=== PATIENT | female | born 1990 | race Caucasian/White ===

== ENCOUNTER 2016-10-26 17:52 | Inpatient (IN) | payer BC ==
[~2016-10-26] VITALS: Ht 162.6 cm; Wt 84.1 kg
[2016-10-26] VITALS (20 sets, daily range): BP systolic 97–138; BP diastolic 56–90; PULSE 75–118; TEMP 97.6–98.3
[2016-10-26] MEDS ORDERED: CLARITIN 1010 MG/TAB (18:08)
[2016-10-26] MEDS ORDERED: PRENATAL PO (18:08)
[2016-10-26 19:14] LABS: BASO % 0.2 % (0.0-2.0); EOS # 0.1 (0.0-0.7); EOS % 0.8 % (0-4.0); GRAN # 9.5 (1.4-6.5); GRAN % 72.8 % (42.2-75.2); HEMATOCRIT 39.3 % (37.0-47.0); HEMOGLOBIN 13.7 g/dl (12.5-16.0); LYMPH # 2.5 (1.2-3.4); LYMPH % 18.8 % (20.0-51.0); MEAN CELL VOLUME 88 fl (80.0-100.0); MEAN CORPUSCULAR HEMOGLOBIN 31 pg (27.0-31.0); MEAN CORPUSCULAR HGB CONC 35 g/dl (33.0-37.0); MEAN PLATELET VOLUME 10.2 fl (7.4-10.4); MONO # 0.9 (0.1-0.6); MONO % 6.7 % (1.7-9.3); PLATELET COUNT 180 K/mm3 (130-400); RED BLOOD COUNT 4.48 M/mm3 (4.10-5.30); REDCELL DISTRIBUTION WIDTH-CV 12.4 % (11.5-14.5)
[2016-10-26 19:27] LABS: ADJUSTED CALCIUM 9.6 mg/dL (8.4-10.2); ALBUMIN 3.6 gm/dL (3.5-5.0); BILIRUBIN,TOTAL 0.6 mg/dL (0.0-1.0); CALCIUM 9.3 mg/dL (8.4-10.2); CREATININE, serum 0.68 mg/dL (0.52-1.25); POTASSIUM 3.5 mmol/L (3.4-5.0); TOTAL PROTEIN 6.8 gm/dL (6.4-8.2)
[2016-10-26] MEDS ORDERED: PERCOCET 325 MG1 TA2 PO (21:06)
[2016-10-26] MEDS ORDERED: MOTRIN 800800 MG/TAB PO (21:06)
[2016-10-27] VITALS (27 sets, daily range): BP systolic 102–144; BP diastolic 59–87; PULSE 78–120; TEMP 97.4–98.8
[2016-10-27 01:04] LABS: PH 6 (5-8); URINE APPEARANCE Clear; URINE BACTERIA None Seen /hpf; URINE BILIRUBIN Negative (NEGATIVE); URINE BLOOD 1+ (NEGATIVE); URINE COLOR Yellow; URINE GLUCOSE Negative (NEGATIVE); URINE KETONE 1+ (NEGATIVE); URINE RBC 20-50 /hpf; URINE UROBILINOGEN Negative (NEGATIVE)
[2016-10-28 08:55] VITALS: BP 116/73; PULSE 80; TEMP 97.4
[2016-10-28 12:31] VITALS: BP 132/88; PULSE 76; TEMP 97.9
[2016-10-28 16:28] VITALS: BP 120/85; PULSE 70; TEMP 97.5
[2016-10-28 19:00] VITALS: BP 130/91; PULSE 83; TEMP 98
[2016-10-29 07:34] VITALS: BP 130/86; PULSE 81; TEMP 98
== END 2016-10-29 13:15 | disposition home or self-care (01) | DRG 775 ==
LOC: LDRO 17:52 → OB 18:16 → LDR 18:16 → OB 10-27 07:15
PROVIDERS: Obstetrics & Gynecology
PROC: 10E0XZZ Delivery of Products of Conception, External Approach (ICD-10-PCS; principal; 2016-10-27)
PROC: 0UQMXZZ Repair Vulva, External Approach (ICD-10-PCS; 2016-10-27)
PROC: 0HQ9XZZ Repair Perineum Skin, External Approach (ICD-10-PCS; 2016-10-27)
DX: O99.12 Other diseases of the blood and blood-forming organs and certain disorders involving the immune mechanism complicating childbirth (principal); D68.51 Activated protein C resistance; O13.3 Gestational [pregnancy-induced] hypertension without significant proteinuria, third trimester; O99.824 Streptococcus B carrier state complicating childbirth; O70.0 First degree perineal laceration during delivery; O71.82 Other specified trauma to perineum and vulva; Z37.0 Single live birth; Z3A.39 39 weeks gestation of pregnancy
CPT/HCPCS: J2405; J2540; J2590; J7120

== ENCOUNTER 2019-10-28 06:53 | Inpatient (IN) | payer BC ==
[2019-10-28] VITALS (34 sets, daily range): BP systolic 121–181; BP diastolic 65–108; PULSE 74–112; TEMP 97.3–99.3
[~2019-10-28] VITALS: Ht 162.6 cm; Wt 94.1 kg
[~2019-10-28 06:53] MED LIST: CLARITIN 1010 MG/TAB; MOTRIN 800800 MG/TAB PO; PERCOCET 325 MG1 TA2 PO; PRENATAL PO
[2019-10-28] MEDS ORDERED: VITAMIN D250 MCG PO (07:15)
[2019-10-28] MEDS ORDERED: COLACE 100100 MG/CAP PO (07:15)
--- NOTE | 2019-10-28 07:30 | NUR ---
0700- Pt. arrives on unit, abulatory for scheduled induction. Pt. into bathroom and changes into gown. 0706- Pt. into bed. EFM and TOCO on and tracing. BP elevated. Will continue to monitor. Assessment completed. 724- IV start. Labs drawn. Pt. tolerated well. Consents explained and signed.
[2019-10-28 07:59] LABS: BASO % 0.2 % (0.0-2.0); EOS # 0.1 (0.0-0.7); EOS % 0.6 % (0-4.0); GRAN # 8.8 (1.4-6.5); HEMATOCRIT 37.7 % (37.0-47.0); HEMOGLOBIN 12.8 g/dl (12.5-16.0); LYMPH # 2.6 (1.2-3.4); LYMPH % 20.8 % (20.0-51.0); MEAN CELL VOLUME 86 fl (80.0-100.0); MEAN CORPUSCULAR HEMOGLOBIN 29 pg (27.0-31.0); MEAN CORPUSCULAR HGB CONC 34 g/dl (33.0-37.0); MEAN PLATELET VOLUME 10.2 fl (7.4-10.4); MONO # 0.9 (0.1-0.6); PLATELET COUNT 205 K/mm3 (130-400); RED BLOOD COUNT 4.38 M/mm3 (4.10-5.30); REDCELL DISTRIBUTION WIDTH-CV 13.7 % (11.5-14.5)
--- NOTE | 2019-10-28 08:30 | NUR ---
0822- Dr. Carver at bedside. Discusses induction. 0825- SVE by -/-3, AROM, clear, odorless fluid noted. Pt tolerated well.
[2019-10-28 09:47] LABS: ALBUMIN 3.4 gm/dL (3.5-5.0); BILIRUBIN,TOTAL 0.4 mg/dL (0.0-1.0); CALCIUM 9.3 mg/dL (8.4-10.2); CREATININE, serum 0.67 (0.52-1.25); POTASSIUM 3.5 mmol/L (3.4-5.0); TOTAL PROTEIN 6.7 gm/dL (6.4-8.2)
--- NOTE | 2019-10-28 11:15 | NUR ---
1015- Pt repositioned to side of bed for epidural placement. Chandler Britton ASSET MANAGEMENT LEAD at bedside. UCs not tracing well due to maternal position. 1017- O2 Sat monitor on and tracing 1021- SS by ASSET MANAGEMENT LEAD, see anesthesia record. 1025- O2 Sat monitor off. Patient assisted to SF with LL. EFM and TOCO adjusted.
[2019-10-28 12:08] LABS: COLLECTION METHOD CLEAN CATCH
[2019-10-28 12:21] LABS: MUCOUS Present /lpf; PH 6 (5-8); SQUAMOUS EPITHELIAL 0-2 /hpf; URINE APPEARANCE Clear; URINE BACTERIA None Seen /hpf; URINE BILIRUBIN Negative (NEGATIVE); URINE BLOOD 1+ (NEGATIVE); URINE COLOR Straw; URINE GLUCOSE Negative (NEGATIVE); URINE KETONE Negative (NEGATIVE); URINE LEUKOCYTE ESTERASE Negative (NEGATIVE); URINE NITRATE Negative (NEGATIVE); URINE PROTEIN(semi-quant) Negative (NEGATIVE); URINE RBC 20-50 /hpf; URINE UROBILINOGEN Negative (NEGATIVE); URINE WBC 0-2 /hpf
--- NOTE | 2019-10-28 12:50 | NUR ---
1224- Pt calls RN to bedside, feeling rectal pressure. SVE by this RN, complete/+1. Pt presses epidural button. 1233- [place] removed without difficulty. 1239- Pt begins pushing with UCs. RN remains at bedside. 1247- Dr Carver and Emanuel Melendez, nursery RN at bedside. Pt and room prepped for delivery. 1250- of viable female . to mother's abd where tended to by nursery RN. Pitocin off. First degree laceration repaired by . Cord clamped and cut, cord blood obtained by . 1255- Spontaneous delivery of placenta. Pitocin restarted at 333ml/hr. Fundus massaged to firm by MD, bleeding WNL. Pericare compelted, ice pack to perineum. New chux pad under Pt. Pt repositioned to high fowlers, baby skin-2-skin.
--- NOTE | 2019-10-28 15:15 | NUR ---
1515- Pt ambulates to bathroom independently with standby assist x2. Pt voids without difficulty. Pericare provided and explained. Underwear and peripad on. While Pt adjusting peripad, IV ripped out, constant stream of blood shooting out of hand and onto floor. Pressure applied by this RN. Gauze and pressure applied by Pt. Will monitor.
[2019-10-29 07:36] VITALS: BP 123/83; PULSE 89; TEMP 98.2
[2019-10-29] MEDS ORDERED: LOVENOX 4040 MG/0.4 SQ (08:57)
[2019-10-29] MEDS ORDERED: IBU800 M1 PO (08:58)
[2019-10-29 15:39] VITALS: BP 125/86; PULSE 90; TEMP 98
--- NOTE | 2019-10-29 15:50 | NUR ---
DISCUSSED WITH PATIENT PLAN TO HAVE 1 WEEK BP CHECK. INFORMED THAT IS OK WITH PATIENT TAKING HER OWN BP AT HOME IF SHE HAS A CUFF AND CALLING IN RESULTS OR SCHEDULING BP CHECK FOR 1 WEEK. PATIENT INSTRUCTED TO CALL SOONER IF EXPERIENCING HEADACHE OR BLURRED VISION. PATIENT VERBALIZES UNDERSTANDING.
== END 2019-10-29 16:10 | disposition home or self-care (01) | DRG 806 ==
LOC: LDR 06:53 → OB 15:30 → LDR 10-29 11:57 → OB 10-29 16:10
PROVIDERS: ADMIT Student in an Organized Health Care Education/Training Program
PROC: 10E0XZZ Delivery of Products of Conception, External Approach (ICD-10-PCS; principal; 2019-10-28)
PROC: 10907ZC Drainage of Amniotic Fluid, Therapeutic from Products of Conception, Via Natural or Artificial Opening (ICD-10-PCS; 2019-10-28)
PROC: 3E033VJ Introduction of Other Hormone into Peripheral Vein, Percutaneous Approach (ICD-10-PCS; 2019-10-28)
PROC: 0HQ9XZZ Repair Perineum Skin, External Approach (ICD-10-PCS; 2019-10-28)
DX: O99.824 Streptococcus B carrier state complicating childbirth (principal); D68.51 Activated protein C resistance; Z37.0 Single live birth; O99.214 Obesity complicating childbirth; E66.9 Obesity, unspecified; Z3A.40 40 weeks gestation of pregnancy; O99.12 Other diseases of the blood and blood-forming organs and certain disorders involving the immune mechanism complicating childbirth; O48.0 Post-term pregnancy; O70.0 First degree perineal laceration during delivery
CPT/HCPCS: J1650; J2540; J2590; J2795; J7120